=== PATIENT | male | born 1950 | race Caucasian/White ===

== ENCOUNTER → 2020-07-05 | Outpatient (CLI) | payer MEDICARE, SELFPAY ==
[~2020-07-05] MED LIST: NORCO 5-325 TA1 EACH PO
== END ==
LOC: CT 07:51
DX: C18.7 Malignant neoplasm of sigmoid colon (principal); C77.2 Secondary and unspecified malignant neoplasm of intra-abdominal lymph nodes; Z87.891 Personal history of nicotine dependence
CPT/HCPCS: Q9967

== ENCOUNTER → 2021-02-18 | Outpatient (CLI) | payer MEDICARE | LOC: CT 01-13 08:30 | DX: C18.7 Malignant neoplasm of sigmoid colon (principal); C77.2 Secondary and unspecified malignant neoplasm of intra-abdominal lymph nodes; Z87.891 Personal history of nicotine dependence | CPT/HCPCS: 36415; 82565; 84520; Q9965 ==

== ENCOUNTER → 2021-08-26 | Outpatient (CLI) | payer OTHER ==
[2021-08-26 08:27] LABS: HEMOGLOBIN 13.9 gm/dl (14.0-17.5); RED BLOOD COUNT 4.72 M/UL (4.20-5.50); WHITE BLOOD COUNT 11.8 K/UL (4.5-11.0)
[2021-08-26 08:48] LABS: BUN/CREATININE RATIO 24 (0-10)
== END ==
LOC: CT 08:07
PROVIDERS: Internal Medicine Hematology & Oncology
DX: C18.7 Malignant neoplasm of sigmoid colon (principal); C77.2 Secondary and unspecified malignant neoplasm of intra-abdominal lymph nodes; Z87.891 Personal history of nicotine dependence; D17.9 Benign lipomatous neoplasm, unspecified
CPT/HCPCS: 36415; 80053; 82378; 85025; Q9967

== ENCOUNTER → 2021-11-11 | Outpatient (CLI) | payer OTHER | LOC: NM 12:41 | DX: R10.11 Right upper quadrant pain (principal) | CPT/HCPCS: 78226; A9537 ==